=== PATIENT | male | born 1945 | race Caucasian/White ===

== ENCOUNTER 2018-02-14 10:08 | Emergency (ER) | payer MEDICARE, BC ==
[~2018-02-14] VITALS: Ht 188 cm; Wt 87.1 kg
[2018-02-14] MEDS ORDERED: ONDANSETRON 4 MG/2 ML VIAL ONE ×2 (10:14→11:02)
[2018-02-14] MEDS ORDERED: MORPHINE SULFATE 4 MG/1 ML DISP.SYRIN ONE ×2 (10:14→11:02)
[2018-02-14] MEDS ORDERED: ONDANSETRON 4 MG/2 ML VIAL IV ONE (10:15)
[2018-02-14] MEDS ORDERED: HYDROMORPHONE 1 MG/1 ML DISP.SYRIN IV ONE (10:15)
[2018-02-14] MEDS ORDERED: MORPHINE SULFATE 2 MG/1 ML DISP.SYRIN IV ONE (10:15)
[2018-02-14 10:27] LABS: BASOPHILS # (AUTO) 0.1 K/uL (0.0-8.0); BASOPHILS % (AUTO) 0.7 % (0.0-2.0); EOSINOPHILS # (AUTO) 3.7 K/uL (0.0-0.7); HEMATOCRIT 40.4 % (36.7-47.1); HEMOGLOBIN 13.8 g/dL (12.5-16.3); LYMPHOCYTES # (AUTO) 2.3 K/uL (20.0-40.0); LYMPHOCYTES % (AUTO) 21.6 % (20.5-51.5); MEAN CORPUSCULAR HGB CONC 34 g/dL (32.5-36.3); MEAN CORPUSCULAR VOLUME 90.7 fL (73.0-96.2); MONOCYTES # (AUTO) 0.8 K/uL (2.0-10.0); MONOCYTES % (AUTO) 7.6 % (0.0-11.0); NEUTROPHILS # (AUTO) 3.7 K/uL (1.8-8.9); NEUTROPHILS % (AUTO) 35.4 % (38.5-71.5); PLATELET COUNT (AUTO) 174 K/uL (152-348); RED BLOOD CELL COUNT(AUTO) 4.45 MIL/uL (4.06-5.63); WHITE BLOOD COUNT (AUTO) 10.6 K/uL (3.6-10.2)
[2018-02-14] MEDS ORDERED: LEVO125T PO (10:29)
[2018-02-14 10:30] LABS: EOSINOPHILS % (AUTO) 34.7 % (0.0-7.0)
[2018-02-14] MEDS ORDERED: IV NORMAL SALINE 500 ML BAG IV ONE (10:30)
[2018-02-14] MEDS ORDERED: HYDROMORPHONE 2 MG/1 ML DISP.SYRIN ONE (10:32)
[2018-02-14] MEDS ORDERED: IOHEXOL 350 100 ML INFUS..BTL ONE (10:33)
[2018-02-14] MEDS ORDERED: SWABABLE VALVE TRANSFER SET EA MC ONE (10:33)
[2018-02-14] MEDS ORDERED: IV NORMAL SALINE 100 ML ONE (10:33)
[2018-02-14 10:36] LABS: CARBON DIOXIDE 24 mmol/L (21-32); CHLORIDE 104 mmol/L (98-107); CREATININE 1.2 mg/dL (0.6-1.3); GLUCOSE 117 mg/dL (74-106); POTASSIUM 4.4 mmol/L (3.5-5.1); UREA NITROGEN, BLOOD 20 mg/dL (7-18)
--- NOTE | 2018-02-14 10:36 | NUR ---
PT SIGNED CONSENT FOR IV CONTRAST CTA.
--- NOTE | 2018-02-14 10:38 | NUR ---
PT OUT OF ER FRO CT.
--- NOTE | 2018-02-14 10:43 | NUR ---
JEANETH SOLANO SPOKE TO DR GALICIA, POLICE CAPTAIN.
--- NOTE | 2018-02-14 10:48 | NUR ---
JEANETH SOLANO SPOKE TO DR JOHNSON(PT'S OWN CUSTODIAL MAINTENANCE WORKER).
--- NOTE | 2018-02-14 10:50 | NUR ---
CALLED SHERI FROM [facility]. PER SHERI SHE CALLED DR LEENA ZAMORA, TO BE PT'S FILM DEVELOPING MACHINE OPERATOR AND AWAITING CALL BACK.
[2018-02-14 10:51] LABS: EOSINOPHILS % (MANUAL) 34 % (0-8); LYMPHOCYTES % (MANUAL) 22 % (20-40); MONOCYTES % (MANUAL) 8 % (2-10); NEUTROPHILS % (MANUAL) 36 % (42-75)
[2018-02-14] MEDS ORDERED: ONDANSETRON IV *ER 4 MG/2 ML VIAL IV ONE (11:00)
[2018-02-14] MEDS ORDERED: MORPHINE SULFATE 4 MG/1 ML DISP.SYRIN IV ONE (11:00)
--- NOTE | 2018-02-14 11:01 | NUR ---
CALLED SHERI AT [facility] REGARDING TX, NO CALL BACK FROM PMD SO FAR. PER SHERI WE WILL RECIEVE A CALL W/ INFO, AWAITING CALL BACK.
--- NOTE | 2018-02-14 11:05 | NUR ---
CALLED [facility] FOR ACLS TX, ETA IS [phone], TRIP # IS [phone].
[2018-02-14] MEDS ORDERED: ELIQUIS PO (11:06)
[2018-02-14] MEDS ORDERED: METO-357 PO (11:06)
--- NOTE | 2018-02-14 11:20 | NUR ---
PT CONTINUES TO HAVE ACTIVE, SEVERE CHEST PAIN AND NAUSEA INSPITE ALL MED GIVEN. PER DR HARGROVE REQUEST 911 CALLED FOR TX TO [place]. [facility] SHERI CALLED AND NOTIFIED OF PT'S TRANSFER UNDER CARE OF DR JOHNSON, TO ROOM 116 CVU.
--- NOTE | 2018-02-14 11:22 | NUR ---
REPORT GIVEN TO ANDREA CVU MIHIR.
--- NOTE | 2018-02-14 11:23 | NUR ---
PER PT'S OWN WET CROWN BLOCKING OPERATOR , PT MAY NEED TO GO TO [facility], [place]. CALLED 911 FOR TX AT THIS TIME.
--- NOTE | 2018-02-14 11:32 | NUR ---
PT LEFT ER VIA RESCUE 83, REPORT GIVEN TO PARAMEDICS.
[2018-02-14] MEDS ORDERED: METOCLOPRAMIDE HCL 10 MG/2 ML VIAL IV ONE (11:45)
== END 2018-02-14 11:35 | disposition short-term general hospital (02) ==
LOC: ER 10:08
DX: I20.0 Unstable angina (principal); R11.10 Vomiting, unspecified; R07.9 Chest pain, unspecified; I10 Essential (primary) hypertension; Z95.0 Presence of cardiac pacemaker
CPT/HCPCS: 36415; 71045; 71275; 80048; 84484; 85025; 85379; 85730; 93005 ×2; 96374; 96375; 96376 ×2; 99291; A4663 ×2; J1170; J2270 ×2; J2405 ×2; J3490; J7030; Q9967; 70030-TC

== ENCOUNTER 2021-09-16 06:17 | Inpatient (IN) | payer BC, MEDICARE ==
[~2021-09-16] VITALS: Ht 188 cm; Wt 95.3 kg
[~2021-09-16 06:17] MED LIST: ELIQUIS PO; LEVO125T PO; METO-357 PO
--- NOTE | 2021-09-16 06:44 | NUR ---
NADER Abreu at bedside for MSE.
[2021-09-16] MEDS ORDERED: LEVO75TA PO (06:45)
[2021-09-16] MEDS ORDERED: CARV6.25 PO (06:45)
[2021-09-16] MEDS ORDERED: DEXAMETHASONE SOD PHOSPHATE 4 MG INJ IV ONE (07:00)
[2021-09-16 07:20] LABS: HEMATOCRIT 40.7 % (36.7-47.1); MEAN CORPUSCULAR HEMOGLOBIN 30.6 uug (23.8-33.4); MEAN CORPUSCULAR VOLUME 88.8 fL (73.0-96.2); PLATELET COUNT (AUTO) 233 K/uL (152-348)
[2021-09-16] MEDS ORDERED: DEXAMETHASONE SOD PHOSPHATE 10 MG INJ ONE (07:25)
[2021-09-16 07:33] LABS: ALANINE AMINOTRANSFERASE 28 U/L (16-63); ALKALINE PHOSPHATASE 67 U/L (50-136); ASPARTATE AMINOTRANSFERASE 36 U/L (15-37); BILIRUBIN,DIRECT 0.2 mg/dL (0.0-0.2); BILIRUBIN,TOTAL 0.9 mg/dL (0.2-1.0); CARBON DIOXIDE 28 mmol/L (21-32); CHLORIDE 100 mmol/L (98-107); CREATININE 1.5 mg/dL (0.6-1.3); GLUCOSE 103 mg/dL (74-106); POTASSIUM 4.1 mmol/L (3.5-5.1); TOTAL PROTEIN, SERUM 7.3 g/dL (6.4-8.2); UREA NITROGEN, BLOOD 26 mg/dL (7-18)
[2021-09-16] MEDS: CEFTRIAXONE 1 G in IV DEXTROSE 5% 50 ML IV SCH (13:00)
[2021-09-16] MEDS ORDERED: MORPHINE SULFATE 2 MG/1 ML DISP.SYRIN IV PRN (13:00)
[2021-09-16] MEDS ORDERED: ACETAMINOPHEN 325 MG TABLET PO PRN (13:00)
[2021-09-16] MEDS ORDERED: TEMAZEPAM 15 MG CAPSULE PO PRN (13:00)
[2021-09-16] MEDS: ASCORBIC ACID 500 MG TABLET PO SCH (13:00)
[2021-09-16] MEDS ORDERED: ALBUTEROL SULFATE 8 GM HFA.AER.AD IH PRN (13:00)
[2021-09-16] MEDS ORDERED: ONDANSETRON 4 MG/2 ML VIAL IV PRN (13:00)
[2021-09-16] MEDS ORDERED: HYDROCODONE/APAP 5-325MG TABLET PO PRN (13:00)
[2021-09-16] MEDS ORDERED: ASPIRIN EC 325 MG TABLET.DR PO SCH (13:00)
[2021-09-16] MEDS: CHOLECALCIFEROL 1,000 UNIT TABLET PO SCH (13:00)
[2021-09-16] MEDS: AZITHROMYCIN IV 500 MG in IV DEXTROSE 5% 250 ML IV SCH (13:52)
[2021-09-16] MEDS ORDERED: CEFTRIAXONE /D5W 50ML IVPB **ER PYXIS IV ONE (14:43)
[2021-09-16] MEDS ORDERED: AZITHROMYCIN 500MG/ D5W 250ML IVPB **ER PYXIS ONLY IV ONE (14:44)
[2021-09-16 14:57] LABS: *BILIRUBIN,URIN NEGATIVE (NEGATIVE); *BLOOD, URINE NEGATIVE (NEGATIVE); *CLARITY,URINE CLEAR (CLEAR); *COLOR,URINE YELLOW (YELLOW); *KETONES,URINE TRACE (NEGATIVE); LEUKOCYTE ESTERASE ,URINE NEGATIVE (NEGATIVE); NITRITE, URINE NEGATIVE (NEGATIVE); UGLUCOSE NEGATIVE (NEGATIVE)
[2021-09-16 18:26] LABS: BACTERIA,URINE NONE SEEN /HPF (NONE SEEN); RBC,URINE 0-3 /HPF (0-3); SQUAMOUS EPITHELIAL CELL,UR NONE SEEN /HPF (NONE SEEN); WBC,URINE 0-3 /HPF (0-3)
--- NOTE | 2021-09-16 19:02 | NUR ---
RECEIVED REPORT FROM MIHIR RANDOLPH. PT NOTED TO BE IN BED. DENIES ANY PAIN/DISCOMFORT. NO SOB OR LABORED BREATHING. AFEBRILE.
[2021-09-16] MEDS: DOCUSATE SODIUM 100 MG CAPSULE PO SCH (21:00)
[2021-09-16] MEDS ORDERED: DOCUSATE SODIUM 250 MG CAPSULE PO SCH (21:00)
[2021-09-16] MEDS ORDERED: DOCUSATE SODIUM 100 MG CAPSULE PO ONE (21:56)
--- NOTE | 2021-09-16 22:42 | NUR ---
PT NOTED TO BE IN BED, AWAKE AND WATCHING TV.
--- NOTE | 2021-09-17 01:54 | NUR ---
PT IN BED, EYES CLOSED AND RESTING.
--- NOTE | 2021-09-17 04:01 | NUR ---
Patient is resting comfortably in bed with eyes closed.
[2021-09-17 06:19] LABS: HEMATOCRIT 42.9 % (36.7-47.1); MEAN CORPUSCULAR HEMOGLOBIN 30.3 uug (23.8-33.4); MEAN CORPUSCULAR VOLUME 89.7 fL (73.0-96.2); PLATELET COUNT (AUTO) 251 K/uL (152-348)
--- NOTE | 2021-09-17 06:34 | NUR ---
PT AMBULATED TO RESTROOM, STEADY GAIT.
[2021-09-17 06:44] LABS: POTASSIUM 4.3 mmol/L (3.5-5.1)
[2021-09-17] MEDS: PANTOPRAZOLE SODIUM 40 MG TABLET.DR PO SCH (07:00)
[2021-09-17] MEDS ORDERED: PANTOPRAZOLE SODIUM 40 MG TABLET.DR PO ONE (07:04)
[2021-09-17 07:27] LABS: BILIRUBIN,TOTAL 0.6 mg/dL (0.2-1.0); MAGNESIUM 2.1 mg/dL (1.8-2.4); PHOSPHOROUS 4.5 mg/dL (2.5-4.9); TOTAL PROTEIN, SERUM 7.2 g/dL (6.4-8.2)
[2021-09-17 08:23] LABS: THYROID STIMULATING HORMONE 0.3 mIU/mL (0.358-3.740)
[2021-09-17] MEDS ORDERED: ENOXAPARIN SODIUM 40 MG/0.4 ML DISP.SYRIN SQ SCH (09:00)
[2021-09-17] MEDS ORDERED: DEXAMETHASONE SOD PHOSPHATE 10 MG INJ ONE (09:25)
[2021-09-17] MEDS ORDERED: ASPIRIN EC 81 MG TABLET.DR PO ONE (09:26)
[2021-09-17] MEDS ORDERED: ASCORBIC ACID 500 MG TABLET ONE (09:27)
[2021-09-17] MEDS ORDERED: CHOLECALCIFEROL 1,000 UNIT TABLET ONE (09:27)
[2021-09-17] MEDS: DEXAMETHASONE SOD PHOSPHATE 4 MG INJ IV SCH (09:40)
[2021-09-17] MEDS: ASPIRIN EC 81 MG TABLET.DR PO SCH (09:40)
[2021-09-17] MEDS: APIXABAN 5 MG TABLET PO SCH ×2 (09:40→21:00)
[2021-09-17] MEDS: CHOLECALCIFEROL 1,000 UNIT TABLET PO SCH (09:41)
[2021-09-17] MEDS: ASCORBIC ACID 500 MG TABLET PO SCH (09:41)
[2021-09-17] MEDS ORDERED: APIX5TAB4 PO (11:35)
[2021-09-17] MEDS ORDERED: OMEP20TA5 PO (11:36)
[2021-09-17] MEDS: CEFTRIAXONE 1 G in IV DEXTROSE 5% 50 ML IV SCH (13:00)
[2021-09-17] MEDS: AZITHROMYCIN IV 500 MG in IV DEXTROSE 5% 250 ML IV SCH (13:45)
[2021-09-17] MEDS ORDERED: CEFTRIAXONE /D5W 50ML IVPB **ER PYXIS IV ONE (13:47)
[2021-09-17] MEDS ORDERED: AZITHROMYCIN 500 MG VIAL IV ONE (13:47)
[2021-09-17] MEDS ORDERED: HYDROCODONE/APAP 5-325MG TABLET ONE (14:52)
[2021-09-17] MEDS ORDERED: ACETAMINOPHEN 325 MG TABLET ONE (14:58)
--- NOTE | 2021-09-17 17:43 | NUR ---
REPORT WAS GIVEN TO BOWLING PIN SETTERS INSTALLER. PT WAS TRANSFERED TO ROOM #[id number].
[2021-09-17 19:06] VITALS: BP 124/71
--- NOTE | 2021-09-17 19:06 | NUR ---
patient arrived to unit.
--- NOTE | 2021-09-17 19:15 | NUR ---
Received pt lying in bed. Alert and oriented to name, place, time and event. On 2L NC saturating at 95%. No signs of acute distress noted. IV in LR FA intact and running NS at 70 ml/hr. Droplet precautions. Belongings and call light within reach. Safety measures initiated.
[2021-09-17 20:00] VITALS: BP 122/75
[2021-09-17] MEDS ORDERED: ATORVASTATIN 40 MG TABLET PO SCH (21:00)
[2021-09-17] MEDS: DOCUSATE SODIUM 100 MG CAPSULE PO SCH (21:10)
[2021-09-17] MEDS: IV NS 1000 ML 1,000 ML IV PRN (21:32)
[2021-09-18] VITALS: BP_SYST 126; BP_SYST 130; BP_DIAS 64; BP_DIAS 74
[2021-09-18 05:29] VITALS: BP 105/65
--- NOTE | 2021-09-18 05:40 | NUR ---
Slept through the night. On 2L NC saturating at 98%. No signs of acute distress. IV in R FA intact and running NS at 70 ml/hr. Educated pt on incentive spirometer use for breathing techniques. Steady gait to bathroom. Droplet precautions. Call lights within reach. Safety measures maintained. Will endorse to am shift.
[2021-09-18 06:39] LABS: HEMATOCRIT 39.2 % (36.7-47.1); MEAN CORPUSCULAR HEMOGLOBIN 29.6 uug (23.8-33.4); MEAN CORPUSCULAR VOLUME 88.9 fL (73.0-96.2); PLATELET COUNT (AUTO) 294 K/uL (152-348)
[2021-09-18] MEDS: LEVOTHYROXINE SODIUM 50 MCG TABLET PO SCH (06:59)
[2021-09-18] MEDS: PANTOPRAZOLE SODIUM 40 MG TABLET.DR PO SCH (06:59)
--- NOTE | 2021-09-18 07:00 | NUR ---
Educated pt Synthroid is the brand name for Levothyroxine. Pt refused Levothyroxine AM medication, states " I will wait to talk to the doctor about my medications". No signs of acute distress.
[2021-09-18 07:01] LABS: CREATININE 1.2 mg/dL (0.6-1.3); MAGNESIUM 2.2 mg/dL (1.8-2.4); PHOSPHOROUS 3.4 mg/dL (2.5-4.9); POTASSIUM 4.9 mmol/L (3.5-5.1)
--- NOTE | 2021-09-18 08:29 | NUR ---
Received patient report from PM nurse, Yessi ASH. Arrived to patient resting comfortably in bed. No signs of distress or discomfort. Patient is awake, alert, and oriented. Receiving 2 L of oxygen via nasal canula saturating at 97%. Patient notified me they do not want to take eliquis due to depression, any statins due to pancreatic attacks, and wants to take synthroid at his dosage of 75 mch. Pharmacy notified. Bed left in lowest position, call light within reach.
[2021-09-18] MEDS ORDERED: APIXABAN 5 MG TABLET PO SCH (09:00)
[2021-09-18] MEDS: CHOLECALCIFEROL 1,000 UNIT TABLET PO SCH (09:32)
[2021-09-18] MEDS: ASCORBIC ACID 500 MG TABLET PO SCH (09:32)
[2021-09-18] MEDS: ASPIRIN EC 81 MG TABLET.DR PO SCH (09:33)
[2021-09-18] MEDS: DEXAMETHASONE SOD PHOSPHATE 4 MG INJ IV SCH (10:23)
[2021-09-18] MEDS: IV NS 1000 ML 1,000 ML IV PRN (11:48)
[2021-09-18 12:00] VITALS: BP 110/70
[2021-09-18] MEDS: CEFTRIAXONE 1 G in IV DEXTROSE 5% 50 ML IV SCH (12:34)
[2021-09-18] MEDS ORDERED: AZITHROMYCIN 250 MG TABLET PO SCH (13:00)
[2021-09-18 16:00] VITALS: BP 125/71
--- NOTE | 2021-09-18 18:27 | NUR ---
Patient tolerated interventions and care for the day. Patient is currently resting in room with no signs of distress or discomfort. IV site intact and patent. Patient is receiving 2L of oxygen saturating at 95%. Informed patient of wanting to wean off oxygen but patient stated to still receive 2L. Bed left in lowest position with call light within reach. Will endorse to PM nurse
[2021-09-18] MEDS ORDERED: ATORVASTATIN 40 MG TABLET PO SCH (21:00)
[2021-09-18] MEDS: DOCUSATE SODIUM 100 MG CAPSULE PO SCH (21:00)
[2021-09-19] MEDS: IV NS 1000 ML 1,000 ML IV PRN (03:05)
--- NOTE | 2021-09-19 06:06 | NUR ---
Pt slept through the night. Denies any acute distress noted. Vitals stable on 2L NC. Addendum: 09/19/21 at 0616 by SANDRA RICE RN Refused colace and Synthroid. Educated pt on medication management. Comfort care and needs attended. Isolation precaution maintained. Safety measures in place. Will continue with the plan of care.
[2021-09-19] MEDS: PANTOPRAZOLE SODIUM 40 MG TABLET.DR PO SCH (06:27)
[2021-09-19] MEDS: LEVOTHYROXINE SODIUM 50 MCG TABLET PO SCH (06:27)
[2021-09-19 08:00] LABS: HEMATOCRIT 36.7 % (36.7-47.1); MEAN CORPUSCULAR VOLUME 88.2 fL (73.0-96.2); PLATELET COUNT (AUTO) 277 K/uL (152-348)
--- NOTE | 2021-09-19 08:07 | NUR ---
Received patient report from PM nurse, Michell ASH. Arrived to patient in bed alert, awake, and oriented. Patient is currently receiving 2L of oxygen via nasal canula and saturating at 95%. IV site intact and patent. Patient notified of today's plan of care. Bed left in lowest position with call light within reach. Comfort measures provided.
[2021-09-19 08:23] LABS: CREATININE 1.1 mg/dL (0.6-1.3); MAGNESIUM 1.9 mg/dL (1.8-2.4); PHOSPHOROUS 3.4 mg/dL (2.5-4.9); POTASSIUM 4.1 mmol/L (3.5-5.1)
[2021-09-19] MEDS: DEXAMETHASONE SOD PHOSPHATE 4 MG INJ IV SCH (08:55)
[2021-09-19] MEDS: CHOLECALCIFEROL 1,000 UNIT TABLET PO SCH (08:55)
[2021-09-19] MEDS: ASPIRIN EC 81 MG TABLET.DR PO SCH (08:55)
[2021-09-19] MEDS: ASCORBIC ACID 500 MG TABLET PO SCH (08:56)
[2021-09-19 11:48] VITALS: BP 104/60
[2021-09-19 16:49] VITALS: BP 111/72
--- NOTE | 2021-09-19 19:07 | NUR ---
Patient resting comfortably in bed. Comfort measures provided. IV site intact and patent. Possible DC tomorrow. Will endorse information to PM nurse
[2021-09-19 20:43] VITALS: BP 108/64
[2021-09-19] MEDS: DOCUSATE SODIUM 100 MG CAPSULE PO SCH (20:57)
[2021-09-20 05:00] VITALS: BP 97/64
[2021-09-20] MEDS: PANTOPRAZOLE SODIUM 40 MG TABLET.DR PO SCH (06:27)
[2021-09-20] MEDS: LEVOTHYROXINE SODIUM 50 MCG TABLET PO SCH (06:27)
[2021-09-20] MEDS: ASCORBIC ACID 500 MG TABLET PO SCH (08:19)
[2021-09-20] MEDS: ASPIRIN EC 81 MG TABLET.DR PO SCH (08:19)
[2021-09-20] MEDS: CHOLECALCIFEROL 1,000 UNIT TABLET PO SCH (08:19)
[2021-09-20] MEDS: DEXAMETHASONE SOD PHOSPHATE 4 MG INJ IV SCH ×2 (08:19→08:47)
[2021-09-20] MEDS ORDERED: LEVO50TA8 PO (11:25)
[2021-09-20] MEDS ORDERED: CARV3.12 PO (11:25)
[2021-09-20] MEDS ORDERED: METH4TAB3 PO (11:25)
[2021-09-20] MEDS ORDERED: MULT-594 PO (11:25)
[2021-09-20 11:38] VITALS: BP 96/57
--- NOTE | 2021-09-20 13:30 | NUR ---
Patient discharged to home. AOx4. On room air. No signs of acute distress. Patient denied SOB/ . Patient denied pain/ discomfort. Discharge instructions given and patient verbalized understanding. IV access removed. ID armband removed. Belongings accounted for and belongings list signed. Patient left hospital via private car.
== END 2021-09-20 13:15 | disposition home or self-care (01) | DRG 177 ==
LOC: ER 06:21 → TRANSITION 20:39 → TELE3 09-17 17:35 → MEDSURG3 09-19 11:25
PROVIDERS: ADMIT Internal Medicine; ATTEND Internal Medicine
DX: U07.1 COVID-19 (principal); J12.82 Pneumonia due to coronavirus disease 2019; J96.01 Acute respiratory failure with hypoxia; I21.A1 Myocardial infarction type 2; E87.1 Hypo-osmolality and hyponatremia; N17.9 Acute kidney failure, unspecified; D64.9 Anemia, unspecified; E03.9 Hypothyroidism, unspecified; E86.1 Hypovolemia; E88.09 Other disorders of plasma-protein metabolism, not elsewhere classified; I25.10 Atherosclerotic heart disease of native coronary artery without angina pectoris; I48.0 Paroxysmal atrial fibrillation; E83.9 Disorder of mineral metabolism, unspecified; Z87.891 Personal history of nicotine dependence; Z95.1 Presence of aortocoronary bypass graft; Z85.46 Personal history of malignant neoplasm of prostate; Z79.01 Long term (current) use of anticoagulants; Z95.0 Presence of cardiac pacemaker; I50.9 Heart failure, unspecified; Z98.890 Other specified postprocedural states; I11.0 Hypertensive heart disease with heart failure; Z79.890 Hormone replacement therapy; Z90.79 Acquired absence of other genital organ(s); Z86.79 Personal history of other diseases of the circulatory system
CPT/HCPCS: 36415; 70030-TC; 71045; 83605; 83615; 83735; 84100; 84443; 85025; 85730; 86140; 86803; 87040; 87086; 87806; 93005; A4663; G0378; J0456; J0696; J1100; J3535; J7030; J7060; Q0144; U0003